=== PATIENT | female | born 1985 | race Caucasian/White ===

== ENCOUNTER 2023-08-11 13:49 | Outpatient (CLI) | payer OTHER, SELFPAY ==
[2023-08-11 14:20] LABS: Hematocrit 36.5 % (37.0-47.0); Hemoglobin 11.7 g/dL (12.0-15.0); Mean Corpuscular HGB Conc 32.1 g/dl (32-36); Mean Corpuscular Hemoglobin 27.8 pg (26-34); Mean Corpuscular Volume 86.7 fl (80-100); Mean Platelet Volume 10.6 fl (7.4-10.4); Platelet Count Result 304 k/mm3 (150-375); Red Blood Count 4.21 M/mm3 (4.2-5.4); Red Cell Distribution Width 13.5 % (11.5-14.5); White Blood Count 10.6 K/mm3 (4.5-10.0)
[2023-08-12 14:41] LABS: Rapid Plasma Reagin Non-Reactive (NonReactive)
== END 2023-08-11 13:50 | disposition home or self-care (01) ==
LOC: ANHLAB 13:52
PROVIDERS: Visit Provider Obstetrics & Gynecology
DX: Z01.818 Encounter for other preprocedural examination (principal)
CPT/HCPCS: 36415; 85027; 86592; 86850; 86900; 86901

== ENCOUNTER 2023-08-12 04:23 | Inpatient (IN) | payer OTHER, SELFPAY ==
--- NOTE | 2023-08-11 12:42 | PM.IMHP ---
H&P: HPI History of Present Illness Date/Time: 08/11/23 12:42 Chief Complaint: Term with previous section Narrative: 37-year-old multiparous patient admitted for repeat section. has been unremarkable. She has good dates and declined attempted vaginal after . Meds Home Medications and Allergies Allergies Allergy/AdvReac Type Severity Reaction Status Date / Time No Known Allergies Allergy Mild Unverified 03/11/04 10:20 Exam Const: General: cooperative, healthy appearing and comfortable Orientation/consciousness: oriented to person, oriented to place and oriented to time HENMT: Head: normal to inspection Resp: Effort & Inspection: normal respiratory effort Cardio: Rate: regular rate Rhythm: regular rhythm Heart sounds: S1 normal heart sound present and S2 normal heart sound present GI: Inspection: normal to inspection (Gravid soft uterus) : External Female Exam: normal external appearance Speculum Exam - Vagina: normal appearance of the vagina Speculum Exam - Cervix: normal appearance of the cervix (Home thick and closed) Assessment and Plan Assessment and plan (1) Term : Code(s): Z34.90 - Encounter for supervision of normal , unspecified, unspecified trimester Status: Acute (2) Previous section: Code(s): Z98.891 - History of uterine scar from previous surgery Status: Acute Plan Low-transverse section
[2023-08-12] VITALS (57 sets, daily range): BP systolic 96–135; BP diastolic 55–97; PULSE 25–146; RESP 16; TEMP 36.4–37.1; O2SAT 80–100; BMI 28.4
[2023-08-12] MEDS: fentaNYL CITRATE INJ (*CRX) 100 MCG/2 ML VIAL 50 MCG IV PUSH ×2 (05:06→08:10)
[2023-08-12] MEDS: LACTATED RINGERS 1,000 ML 125 ML IV CONT ×3 (05:07→08:04)
--- NOTE | 2023-08-12 05:32 | P.PNAN_ITS ---
Anes - Eval Pre Procedure Procedure: Operation Date: 08/12/23 07:30 Proposed Procedures p Section - Vasiliy Almaraz MD epidural placement Date/Time: 08/12/23 05:32 Pre Op Diagnosis: Repeat /pre-admit Patient Data Age: 37 Gender: F Height: 1.52 m Weight: 66 kg Last Vital Signs O2 Del Method Room Air 08/12/23 04:47 Allergies Allergy/AdvReac Type Severity Reaction Status Date / Time No Known Allergies Allergy Mild Unverified 03/11/04 10:20 Laboratory Tests 08/12/23 04:59 Urine Opiates Screen Pending Urine Methadone Screen Pending Ur Barbiturates Screen Pending Ur Phencyclidine Scrn Pending Ur Amphetamine Screen Pending U Benzodiazepines Scrn Pending Urine Cocaine Screen Pending U Cannabinoids Screen Pending Patient hx anesthesia problems: none Family hx anesthesia problems: none Results Review: All pre-operative results and documents have been reviewed as part of the pre- operative evaluation. PMFSH Past Medical History Medical History (Updated 08/12/23 @ 05:33 by Geri Pollard CRNA) Asthma Family History Family History Mother Skin cancer Grandparent Breast cancer in female Ovarian cancer Throat cancer Osteoporosis Stomach cancer Sibling H/O: hysterectomy Father High cholesterol Social History Social History Smoking status: Never smoker Second hand tobacco smoke exposure: No Lack of Transportation: No Lack of Food: Never True Current Housing: I Have Housing Concerned About Future Housing: No Difficulty Paying Gas/Electric Bills: No Difficulty Paying for Meds: No Currently Unemployed: No Education: Bachelor's Degree Difficulty w/ Childcare or Family Care: No Spiritual care concerns: No Exam Day of Procedure 08/12/23 05:32 Patient weight: overweight Heart: regular rate and rhythm Lungs: normal air movement Airway: Mallampati scale Neurological: alert and oriented
[2023-08-12] MEDS: AZITHROMYCIN 500 MG/NS 250 ML 500 MG/250 ML BAG 250 MG IVPB (05:42)
[2023-08-12] MEDS: ONDANSETRON INJ 4 MG/2 ML VIAL IV PUSH (05:58)
--- NOTE | 2023-08-12 06:20 | WPDHPUPDATE1 ---
History and Physical Update Update Date/Time: 08/12/23 06:20 History and Physical has been reviewed, including an updated exam of the patient. There are NO changes in the patient's condition. Risks, benefits, and alternatives have been discussed and questions answered. Patient agrees to proceed with procedure. Patient came in with ruptured membranes and received a year-old will proceed with low-transverse section
--- NOTE | 2023-08-12 07:44 | W.PM.PROC2 ---
Procedure Note - Detailed Date of Procedure 08/12/23 Pre-op Diagnosis Repeat /pre-admit Post-op Diagnosis Same Procedure Performed repeat low-transverse section Surgeon Vasiliy Almaraz MD Anesthesia Epidural Indications this is 37-year-old female at term with spontaneous rupture membranes of planned repeat section Findings male infant 6lb 0oz Description of Procedure patient was admitted with spontaneous rupture membranes. Epidural anesthesia was placed after obtained informed consent she was taken back prepped draped in normal sterile fashion placed in the supine position. The abdomen was entered in Pfannenstiel fashion progressive layers of fascia. Fascia incised midline carried number out fresh bilaterally. Underlying muscles sharply dissected. Parietal peritoneum of like a clamps and by sharp dissection. Superiorly and inferiorly dome of the bladder. Bladder flap formed bladder blade returned. A low-transverse incision made head delivered in the PIERO position. Anterior posterior shoulder delivered spontaneously. Cord clamped x2 and cut and passed off the table an excellent cry. Placenta delivered intact manually. Uterus tubes and abdomen wrapped in moist towel. After assuring no membranes or debris remained in the uterus, the uterus was closed with continuous running 0 Vicryl from lateral edge to lateral edge. Followed by 2nd imbricating running locking 0 Vicryl from lateral edge to lateral edge. Hemostasis was assured. The uterus returned the abdomen in [place] term placed over the raw surface area. Laps removed and accounted for the the uterine incision inspected 1 last time noted be hemostatic. The fascia was closed with continuous running 0 Vicryl from lateral edge to lateral edge. Irrigation subcutaneous layer and skin closed with 4 Monocryl glue. Patient tolerated the procedure well all sponge, needle, instrument counts were correct. There were no immediate complications Estimated Blood Loss 135 Drains No Packing No Pathology None sent Complications No immediate complications Condition Stable Disposition Floor
[2023-08-12] MEDS: diphenhydrAMINE HCl INJ 50 MG/ML VIAL 25 MG IV PUSH (08:06)
[2023-08-12] MEDS: OXYTOCIN 30 UNITS/NS 500 ML 30 UNITS/500 ML BAG 125 UNITS IV CONT (08:19)
[2023-08-12] MEDS: ALPRAZolam (*CRX) 0.5 MG TABLET PO ×2 (08:35→14:45)
[2023-08-12 08:50] LABS: Barbiturate Screen Urine Negative (Negative); Benzodiazepines Screen Urine Negative (Negative)
[2023-08-12 08:51] LABS: Amphetamine Screen Urine Negative (Negative); Cannabinoid Screen Urine Negative (Negative); Cocaine Screen Urine Negative (Negative); Methadone Screen Urine Negative (Negative); Opiate Screen Urine Negative (Negative); Phencyclidine Screen Urine Negative (Negative)
[2023-08-12] MEDS: fentaNYL CITRATE INJ (*CRX) 100 MCG/2 ML VIAL 25 MCG IV PUSH (10:15)
[2023-08-12] MEDS: KETOROLAC 30 MG/ML VIAL (*BKC) IV PUSH (11:30)
[2023-08-12] MEDS: HYDROcodone/acetaminophen (*CRX) 10-325 MG TABLET 1 TAB PO ×3 (12:00→20:13)
[2023-08-12] MEDS: SIMETHICONE 80 MG TAB.CHEW PO ×3 (12:00→20:13)
[2023-08-12] MEDS: DEXTROSE 5%/0.45% SOD CHL 1,000 ML 125 ML IV CONT (13:00)
[2023-08-12] MEDS: DOCUSATE SODIUM 100 MG CAPSULE PO (17:00)
[2023-08-13] VITALS: BP 114/62; PULSE 75; RESP 18; TEMP 36.9; O2SAT 100
[2023-08-13] MEDS: HYDROcodone/acetaminophen (*CRX) 10-325 MG TABLET 1 TAB PO ×6 (03:00→21:16)
[2023-08-13] MEDS: SIMETHICONE 80 MG TAB.CHEW PO ×2 (05:00→19:39)
[2023-08-13] MEDS: IBUPROFEN 600 MG TABLET PO ×4 (05:20→19:39)
[2023-08-13 05:34] LABS: Basophils Percent Auto 0.3 % (0.2-1.2); Eosinophils Absolute Auto 0.1 K/mm3 (0-0.3); Eosinophils Percent Auto 0.6 % (0-4.4); Hematocrit 30.2 % (37.0-47.0); Hemoglobin 9.4 g/dL (12.0-15.0); Immature Granulocyte Absolute 0.15 K/mm3 (0.00-0.031); Lymphocytes Absolute Auto 2.03 K/mm3 (0.9-3.2); Lymphocytes Percent Auto 12.9 % (18.3-44.2); Mean Corpuscular HGB Conc 31.1 g/dl (32-36); Mean Corpuscular Hemoglobin 27.7 pg (26-34); Mean Corpuscular Volume 89.1 fl (80-100); Mean Platelet Volume 11.1 fl (7.4-10.4); Monocytes Absolute Auto 1.4 K/mm3 (0.1-0.6); Neutrophils Percent Auto 76.2 % (45.5-73.1); Platelet Count Result 245 k/mm3 (150-375); Red Blood Count 3.39 M/mm3 (4.2-5.4); Red Cell Distribution Width 13.9 % (11.5-14.5); White Blood Count 15.8 K/mm3 (4.5-10.0)
--- NOTE | 2023-08-13 06:11 | PM.OBPNVD ---
OB - PN: Subj Subjective Date/time seen: 08/13/23 06:11 Patient comments: no complaints and pain well controlled baby status: doing well OB - PN: Obj Data Labs 08/13/23 04:45 Labs: Laboratory Results - last 24 hr 08/12/23 08/13/23 08:26 04:45 WBC 15.8 H RBC 3.39 L Hgb 9.4 L Hct 30.2 L MCV 89.1 MCH 27.7 MCHC 31.1 L RDW 13.9 Plt Count 245 MPV 11.1 H Immature Gran % (Auto) 1.0 H Neut % (Auto) 76.2 H Lymph % (Auto) 12.9 L [place] % (Auto) 9.0 H Eos % (Auto) 0.6 Baso % (Auto) 0.3 Lymph # (Auto) 2.03 [place] # (Auto) 1.4 H Eos # (Auto) 0.1 Baso # (Auto) 0.0 Abs Immat Gran (auto) 0.15 H Absolute Neuts (auto) 12.0 H Absolute Nucleated RBC 0.0 Nucleated RBC % 0.0 Urine Opiates Screen Negative Urine Methadone Screen Negative Ur Barbiturates Screen Negative Ur Phencyclidine Scrn Negative Ur Amphetamine Screen Negative U Benzodiazepines Scrn Negative Urine Cocaine Screen Negative U Cannabinoids Screen Negative OB - PN A/P Plan day: 1 Plan: routine care Time Spent With Patient Time: Total time spent is greater than 50% in coordination of care (as documented) at patient's floor/unit and/or counseling patient: Time with patient: less than 15 minutes Exam Const: General: cooperative, healthy appearing and comfortable Nutritional Appearance: average body habitus Orientation/consciousness: oriented to person, oriented to place and oriented to time HENMT: Head: normal to inspection Resp: Effort & Inspection: normal respiratory effort Cardio: Rate: regular rate Rhythm: regular rhythm Heart sounds: S1 normal heart sound present and S2 normal heart sound present GI: Inspection: normal to inspection ( Fundus firm below the umbilicus) and incision ( incision clean dry and intact)
--- NOTE | 2023-08-13 06:12 | PM.DS ---
DS: Admitting Diagnosis Discharge Date 08/15/2023 Admitting Diagnosis term /previous section DS: Discharge Diagnosis Discharge Diagnosis (1) Previous section: Code(s): Z98.891 - History of uterine scar from previous surgery Status: Acute (2) Term : Code(s): Z34.90 - Encounter for supervision of normal , unspecified, unspecified trimester Status: Acute DS: Summary Hospital Course Reason for hospitalization: patient was admitted for repeat section at term Hospital Course: patient underwent successful repeat section on 08/12/2023. Her hospital course was unremarkable. She remained afebrile. She was up, eating regular diet, ambulating, voiding without difficulty, well controlled with pain medicine, and generally did without complaints Time Spent with Patient Time attestation: Total time spent providing and/or coordinating discharge services: Exam Const: General: cooperative, healthy appearing and comfortable Orientation/consciousness: oriented to person, oriented to place and oriented to time Resp: Effort & Inspection: normal respiratory effort Cardio: Rate: regular rate Rhythm: regular rhythm Heart sounds: S1 normal heart sound present and S2 normal heart sound present GI: Inspection: normal to inspection ( fundus firm below the umbilicus) and incision ( wound clean dry and intact) DS: Data Data Completed and Pending Labs on day of discharge: Labs from last 24 hours 08/13/23 08/12/23 04:45 08:26 WBC 15.8 H RBC 3.39 L Hgb 9.4 L Hct 30.2 L MCV 89.1 MCH 27.7 MCHC 31.1 L RDW 13.9 Plt Count 245 MPV 11.1 H Immature Gran % (Auto) 1.0 H Neut % (Auto) 76.2 H Lymph % (Auto) 12.9 L [place] % (Auto) 9.0 H Eos % (Auto) 0.6 Baso % (Auto) 0.3 Lymph # (Auto) 2.03 [place] # (Auto) 1.4 H Eos # (Auto) 0.1 Baso # (Auto) 0.0 Abs Immat Gran (auto) 0.15 H Absolute Neuts (auto) 12.0 H Absolute Nucleated RBC 0.0 Nucleated RBC % 0.0 Urine Opiates Screen Negative Urine Methadone Screen Negative Ur Barbiturates Screen Negative Ur Phencyclidine Scrn Negative Ur Amphetamine Screen Negative U Benzodiazepines Scrn Negative Urine Cocaine Screen Negative U Cannabinoids Screen Negative Discharge Plan Discharge Attending physician on discharge: Vasiliy Gallego Discharging Clinician: Vasiliy Gallego Patient Disposition: Home, Self-Care Activity: may shower, no straining, no driving and pelvic rest Diet: heart healthy Wound Care Instructions: follow printed instructions Patient Instructions: Antibiotic Form Stand Alone Forms: General Discharge Information Follow-up/Referrals: Vasiliy Gallego MD [Physician] - Discharge Medications: New hydrocodone-acetaminophen 5-325 mg tablet 1 tablet PO Q4H PRN (Reason: pain) Qty: 30 0RF Continued albuterol sulfate 90 mcg/actuation HFA aerosol inhaler 2 puff INHALATION Q4H PNV [id number] fumarate-FA [] 28 mg iron- 800 mcg Tablet 1 tablet PO DAILY Date of admission: 08/12/23 04:23 Primary Care Provider: PHYSICIAN NOT ON STAFF,NONSTAFF Admitting Provider: Vasiliy Gallego Attending physician on admission: Vasiliy Gallego Condition: Stable
[2023-08-13 06:55] VITALS: BP 115/70; PULSE 70; RESP 14; TEMP 36.7; O2SAT 98
[2023-08-13] MEDS: POLYSACCHARIDE IRON COMPLEX 150 MG CAPSULE PO ×2 (08:12→17:01)
[2023-08-13] MEDS: DOCUSATE SODIUM 100 MG CAPSULE PO ×2 (08:12→17:02)
--- NOTE | 2023-08-13 09:39 | PC.NURSE ---
On 08/13/23, the student, Shanti Casillas, provided care and completed [facility] documentation on this patient. I have reviewed the student's documentation and agree with the findings.
--- NOTE | 2023-08-13 10:46 | WPDANLDPN2 ---
Anes-Prog Note L&D Date/Time: 08/13/23 10:46 Comfortable throughout: section Neuraxial method: epidural Epidural/Spinal procedure site: clean & non-tender Neuro status: Neuro function grossly intact. Cardiovascular status: normal Respiratory status: normal Airway patency: baseline Mental status: baseline Post-Op hydration status: normal Vital Signs: Last Vital Signs Temp 36.7 C 08/13/23 06:55 Pulse 70 08/13/23 06:55 Resp 14 08/13/23 06:55 BP 115/70 08/13/23 06:55 Pulse Ox 98 08/13/23 06:55 O2 Del Method Room Air 08/13/23 00:00 Pain score (VAS): 2/10 I/O: Intake & Output 08/12/23 08/13/23 08/13/23 23:59 07:59 15:59 Intake Total 2300 1000 240 Output Total 550 1350 Balance 1750 -350 240 Post-procedural complaints: none Patient feedback: Patient satisfied with anesthetic care.
--- NOTE | 2023-08-13 10:47 | WPDANLDNPN2 ---
Anes-Prog Note L&D-Neuraxial Date/Time: 08/13/23 10:47 Neuraxial medications: epidural PF morphine Opiod-related complaints: none Patient feedback: Patient satisfied with post-operative pain management.
--- NOTE | 2023-08-13 16:08 | PCCCNOTE ---
Care Coordination met with pt. and FOB to discuss discharge planning. Pt.s current D/C plan is to return home with baby. This is pt.'s second child, her oldest is 19. Pt. states her daughter lives with her and is excited for the baby to come home. They have everything needed to safely bring baby home including a car seat that RN will check. Pt. states they will bottle feed baby and had sugar house supervisor arranged. Pt. tested positive for Benzos, opiates, and THC during office visit in march. Pt. and baby tested negative for any drugs during current admission. Baby's umbilical cord is pending, CC will follow.
[2023-08-13 19:30] VITALS: BP 117/76; PULSE 84; RESP 16; TEMP 36.8; O2SAT 99
[2023-08-14] MEDS: HYDROcodone/acetaminophen (*CRX) 5-325 MG TABLET 1 TAB PO (02:20)
[2023-08-14] MEDS: IBUPROFEN 600 MG TABLET PO ×3 (06:00→19:20)
[2023-08-14] MEDS: SIMETHICONE 80 MG TAB.CHEW PO (06:00)
--- NOTE | 2023-08-14 06:51 | PM.OBPNVD ---
OB - PN: Subj Subjective Date/time seen: 08/14/23 06:51 Patient comments: no complaints and pain well controlled baby status: doing well OB - PN: Obj Data Labs 08/13/23 04:45 OB - PN A/P Plan day: 2 Plan: routine care Time Spent With Patient Time: Total time spent is greater than 50% in coordination of care (as documented) at patient's floor/unit and/or counseling patient: Time with patient: less than 15 minutes Exam Const: General: cooperative, healthy appearing and comfortable Nutritional Appearance: average body habitus Orientation/consciousness: oriented to person, oriented to place and oriented to time HENMT: Head: normal to inspection Resp: Effort & Inspection: normal respiratory effort Cardio: Rate: regular rate Rhythm: regular rhythm Heart sounds: S1 normal heart sound present and S2 normal heart sound present GI: Inspection: normal to inspection and incision (cdi)
[2023-08-14] MEDS: POLYSACCHARIDE IRON COMPLEX 150 MG CAPSULE PO ×2 (08:05→16:43)
[2023-08-14] MEDS: DOCUSATE SODIUM 100 MG CAPSULE PO ×2 (08:05→16:43)
[2023-08-14 08:10] VITALS: BP 94/61; PULSE 65; RESP 16; TEMP 36.3; O2SAT 97
[2023-08-14] MEDS: HYDROcodone/acetaminophen (*CRX) 10-325 MG TABLET 1 TAB PO ×2 (13:34→19:19)
--- NOTE | 2023-08-14 17:41 | PC.NURSE ---
Yenifer Burton RN, has looked over and agrees with the charting for this patient that Jose Valenzuela RN License Pending has completed.
[2023-08-14 20:00] VITALS: BP 118/79; PULSE 78; RESP 16; TEMP 36.6; O2SAT 98
[2023-08-15] MEDS: HYDROcodone/acetaminophen (*CRX) 10-325 MG TABLET 1 TAB PO ×5 (00:03→18:29)
[2023-08-15] MEDS: IBUPROFEN 600 MG TABLET PO ×3 (04:10→18:28)
--- NOTE | 2023-08-15 06:31 | PM.OBPNVD ---
OB - PN: Subj Subjective Date/time seen: 08/15/23 06:31 Patient comments: no complaints and pain well controlled baby status: doing well and nursing well OB - PN: Obj Data Labs 08/13/23 04:45 OB - PN A/P Plan day: 3 Plan: routine care, discharge home and follow up 6 weeks ( 4 weeks) Time Spent With Patient Time: Total time spent is greater than 50% in coordination of care (as documented) at patient's floor/unit and/or counseling patient: Time with patient: less than 15 minutes Exam Const: General: cooperative, healthy appearing and comfortable Nutritional Appearance: average body habitus Orientation/consciousness: oriented to person, oriented to place and oriented to time Resp: Effort & Inspection: normal respiratory effort Cardio: Rate: regular rate Rhythm: regular rhythm Heart sounds: S1 normal heart sound present and S2 normal heart sound present GI: Inspection: normal to inspection and incision ( wound clean dry and intact)
[2023-08-15 08:20] VITALS: BP 104/62; PULSE 84; RESP 16; TEMP 36.4; O2SAT 99
[2023-08-15] MEDS: DOCUSATE SODIUM 100 MG CAPSULE PO ×2 (10:02→18:28)
[2023-08-15] MEDS: POLYSACCHARIDE IRON COMPLEX 150 MG CAPSULE PO ×2 (10:02→18:28)
--- NOTE | 2023-08-15 17:07 | PC.NURSE ---
Patient to view the discharge video Mother & Baby Care, The First Two Weeks online. Patient was given the opportunity and encouraged to ask questions. Patient verbalized understanding of information shared and has been given the mother/baby guide for home reference.
--- NOTE | 2023-08-15 19:20 | PC.NURSE ---
[id number] Patient given discharge instructions and printed prescription for pain medication, signature page signed, patient is now a No Care Bed as her is still a patient.
== END 2023-08-15 18:55 | disposition home or self-care (01) | DRG 540 ==
LOC: ANHLDR 06:21 → ANHOB2 10:59
PROVIDERS: Admitting Provider Obstetrics & Gynecology; Visit Provider Obstetrics & Gynecology
PROC: 10D00Z1 Extraction of Products of Conception, Low, Open Approach (ICD-10-PCS; CPT 59514; principal; 2023-08-12 07:30)
DX: O34.219 Maternal care for unspecified type scar from previous cesarean delivery (principal); Z37.0 Single live birth; Z3A.39 39 weeks gestation of pregnancy
CPT/HCPCS: 36415; 80307; 84112; 85025; A9270; J0456; J1200; J1885; J2250; J2274; J2405; J2590; J2795; J3010; J7120